=== PATIENT | female | born 1980 | race Caucasian/White ===

== ENCOUNTER 2016-06-16 13:06 | Emergency (ER) | payer MEDICAID ==
[~2016-06-16] VITALS: Ht 167.6 cm; Wt 117.4 kg
[~2016-06-16 13:06] MED LIST: IBUP-232 PO
[2016-06-16 13:13] VITALS: BP 119/88; PULSE 77; RESP 18; TEMP 98.2; O2SAT 96
[2016-06-16] MEDS ORDERED: NAPR500T PO (14:00)
[2016-06-16] MEDS ORDERED: ROBA500T PO (14:00)
--- NOTE | 2016-06-16 14:01 | PD ---
HPI Chief Complaint: Pain: Acute or Chronic Time Seen by Provider: 14:00 Travel History International Travel<30 days: No Contact w/Intl Traveler<30days: No Traveled to known affect area: No History of Present Illness HPI 35-year-old female presents to the emergency department for evaluation of left hip pain for 4 weeks. Denies any injury or trauma. States that the pain is in the left upper hip and side. States the pain is brought on by bending and moving the left hip. Specifically when she goes from a sitting to standing position she feels the pain. States that she has been taking ibuprofen with minimal improvement of symptoms. Denies any fever, chills, nausea, vomiting, diarrhea, constipation, burning with urination, urinary frequency. Denies , last menstrual period 3 weeks ago. No other complaints. PFSH Past Medical History Medical History: Denies Significant Hx Hx Anticoagulant Therapy: No Blood Disorders: No Cancer: No Cardiovascular Problems: No Chemotherapy: No Cerebrovascular Accident: No Diabetes: No Diminished Hearing: No Endocrine: No Gastrointestinal Disorders: No Genitourinary: No Immune Disorder: No Implanted Vascular Access Dvce: No Musculoskeletal: No Neurologic: No Psychiatric: No Reproductive: No Respiratory: No ?: Not LMP: 3 weeks ago : 4 Para: 3 Miscarriage: 1 Tubal Ligation: Yes Past Surgical History Abdominal Surgery: No Cardiac Surgery: No Section: Yes Ear Surgery: No Endocrine Surgery: No Eye Surgery: No Genitourinary Surgery: Yes (C/SECTION) Gynecologic Surgery: No Hysterectomy: No Neurologic Surgery: No Oral Surgery: No Thoracic Surgery: No Other Surgery: No Social History Alcohol Use: No Tobacco Use: No Substance Use: No Allergies-Medications (Allergen,Severity, Reaction): Coded Allergies: No Known Allergies (Verified , 01/01/16) Reported Meds & Prescriptions Reported Meds & Active Scripts Active Naproxen 500 Mg Tab 500 Mg PO BID 7 Days Robaxin (Methocarbamol) 500 Mg Tab 500 Mg PO TID Ibuprofen 600 Mg Tab 600 Mg PO Q8HR PRN Review of Systems Except as stated in HPI: all other systems reviewed are Neg Physical Exam Narrative GENERAL: Well-nourished and well-developed pleasant patient in no acute distress who is nontoxic appearing. SKIN: Warm and dry. HEAD: Normocephalic and atraumatic. EYES: No injection, drainage, or hyphema noted. PERRLA. EOMI. ENT: No nasal drainage noted. Oropharynx is clear. NECK: Supple and the trachea is midline. CARDIOVASCULAR: Regular rate and rhythm. RESPIRATORY: Breath sounds are equal bilaterally with no accessory muscle use, wheezing, rhonchi, or crackles. GASTROINTESTINAL: Abdomen is soft, non-tender, and nondistended. MUSCULOSKELETAL: Patient describing pain in the left hip flexor with lifting the left leg at the hip. No obvious deformities, swelling, cyanosis, or ecchymosis is present throughout the upper and lower extremities. Patient has full range of motion without any signs of neurovascular compromise. BACK: Nontender without any obvious deformities, bony point tenderness, or crepitus noted throughout the thoracic and lumbar vertebrae. NEUROLOGICAL: Awake, alert, and oriented. Normal speech and gait. Cranial nerves are grossly intact. Data Data Last Documented VS Vital Signs Date Time Temp Pulse Resp B/P Pulse Ox O2 Delivery O2 Flow Rate FiO2 06/16/16 13:13 98.2 77 18 119/88 96 MDM Medical Decision Making Medical Screen Exam Complete: Yes Emergency Medical Condition: Yes Differential Diagnosis Muscle strain versus muscle spasm versus arthritis versus other Narrative Course 35-year-old female presents to the emergency department for evaluation of left hip pain. Patient is afebrile, vital signs are stable. The patient is describing pain located in the left hip flexor only with movement of the left leg, bending and when she goes from a sitting to standing position. The description of the pain is consistent with musculoskeletal pain. We'll prescribe her Robaxin and naproxen. Discussed with the patient that should she have any worsening of symptoms she should return to the emergency department. Patient verbalizes understanding and agreement with treatment plan. Diagnosis Primary Impression: Left hip pain Referrals: Primary Care Physician Patient Instructions: General Instructions, Hip Pain (ED) Additional Instructions: Take medications as prescribed with food and a full glass of water. Do not take Robaxin with alcohol or while driving. Follow-up with your Primary Care Physician. Return to the ED for any acute worsening of symptoms. Med/Other Pt SpecificInfo: Prescription(s) given Scripts Naproxen 500 Mg [id number] Mg PO BID 7 Days Ref 0 Prov:Abdirashid Leon MD 06/16/16 Methocarbamol (Robaxin)500 Mg [id number] Mg PO TID #15 TAB Ref 0 Prov:Abdirashid Leon MD 06/16/16 Disposition: 01 DISCHARGE HOME Condition: Stable Doreen Reardon Jun 16, 2016 14:01
== END 2016-06-16 14:18 | disposition home or self-care (01) ==
LOC: PHEFT 13:06
DX: M25.552 Pain in left hip (principal)
CPT/HCPCS: 99283

== ENCOUNTER 2016-07-02 21:49 | Emergency (ER) | payer MEDICAID, OTHER ==
[~2016-07-02 21:49] MED LIST changes: +NAPR500T PO; +ROBA500T PO
[2016-07-02 21:53] VITALS: BP 131/86; PULSE 73; RESP 18; TEMP 98.9; O2SAT 100
[2016-07-02 22:08] LABS: BLOOD, URINE NEG (NEG); GLUCOSE,URINE NEG (NEG); KETONE, URINE NEG (NEG); NITRITE,URINE NEG (NEG)
[2016-07-02 22:10] LABS: URINE COLOR YELLOW (YELLW/STRAW)
[2016-07-02 22:13] LABS: RBC, URINE 0-2 /hpf (0-3); WBC, URINE 0-2 /hpf (0-5)
[2016-07-02 22:14] LABS: BACTERIA, URINE OCC /hpf; COMMENT (UR) CULT NOT INDICATED; CULTURE IF INDICATED CULT NOT INDICATED; SQUAMOUS EPITHELIAL CELL URINE > 8 /hpf (0-5)
[2016-07-02] MEDS ORDERED: SODIUM CHLORIDE 0.9% FLUSH 10 ML FLUSH IV FLUSH PRN (22:30)
[2016-07-02] MEDS ORDERED: ACETAMINOPHEN/HYDROcodone 325 MG/5 MG TAB PO ONE (22:30)
--- NOTE | 2016-07-02 22:33 | PD ---
HPI Chief Complaint: Abdominal Pain Time Seen by Provider: 21:58 Travel History International Travel<30 days: No Contact w/Intl Traveler<30days: No Traveled to known affect area: No History of Present Illness HPI 35 yo LMP 2 weeks prior 2 days suprapubic and L abd pain, crampy/burning, which she states is severe. onset gradual. no gu complaint. no fever. no n/v/d. no similar prior pain. no back pain. pain is worse with deep palpation. PFSH Past Medical History Hx Anticoagulant Therapy: No Blood Disorders: No Cancer: No Cardiovascular Problems: No Chemotherapy: No Cerebrovascular Accident: No Diabetes: No Diminished Hearing: No Endocrine: No Gastrointestinal Disorders: No Genitourinary: No Immune Disorder: No Implanted Vascular Access Dvce: No Musculoskeletal: No Neurologic: No Psychiatric: No Reproductive: No Respiratory: No ?: Unknown LMP: END OF MAY : 4 Para: 3 Miscarriage: 1 Tubal Ligation: Yes Past Surgical History Abdominal Surgery: No Cardiac Surgery: No Section: Yes Ear Surgery: No Endocrine Surgery: No Eye Surgery: No Genitourinary Surgery: Yes (C/SECTION) Gynecologic Surgery: No Hysterectomy: No Neurologic Surgery: No Oral Surgery: No Thoracic Surgery: No Other Surgery: No Social History Alcohol Use: No Tobacco Use: No Substance Use: No Allergies-Medications (Allergen,Severity, Reaction): Coded Allergies: No Known Allergies (Verified , 01/01/16) Reported Meds & Prescriptions Reported Meds & Active Scripts Active Naproxen 500 Mg Tab 500 Mg PO BID 7 Days Robaxin (Methocarbamol) 500 Mg Tab 500 Mg PO TID Ibuprofen 600 Mg Tab 600 Mg PO Q8HR PRN Review of Systems Except as stated in HPI: all other systems reviewed are Neg Physical Exam Narrative GENERAL: 35 yo F, WNWD, NAD SKIN: Warm and dry. HEAD: Atraumatic. Normocephalic. EYES: Pupils equal and round. No scleral icterus. No injection or drainage. ENT: No nasal bleeding or discharge. Mucous membranes pink and moist. NECK: Trachea midline. No JVD. CARDIOVASCULAR: Regular rate and rhythm. RESPIRATORY: No accessory muscle use. Clear to auscultation. Breath sounds equal bilaterally. GASTROINTESTINAL: Soft. TTP L abdomen. No rebound/guarding. MUSCULOSKELETAL: Extremities without clubbing, cyanosis, or edema. No obvious deformities. NEUROLOGICAL: Awake and alert. No obvious cranial nerve deficits. Motor grossly within normal limits. Five out of 5 muscle strength in the arms and legs. Normal speech. PSYCHIATRIC: Appropriate mood and affect; insight and judgment normal. Data Data Last Documented VS Vital Signs Date Time Temp Pulse Resp B/P Pulse Ox O2 Delivery O2 Flow Rate FiO2 07/02/16 22:24 20 07/02/16 21:53 98.9 73 131/86 100 VS reviewed Orders Urinalysis - C+S If Indicated (07/02/16 21:58) Ed Urine Pregnancytest Poc (07/02/16 21:58) Complete Blood Count With Diff (07/02/16 22:25) Comprehensive Metabolic Panel (07/02/16 22:25) Lipase (07/02/16 22:25) Lactic Acid (07/02/16 22:25) Iv Access Insert/Monitor (07/02/16 22:25) Ecg Monitoring (07/02/16 22:25) Oximetry (07/02/16 22:25) Sodium Chloride 0.9% Flush (Ns Flush) (07/02/16 22:30) Acetamin-Hydrocod 325-5 Mg ([place] 5-325 (07/02/16 22:30) Labs Laboratory Tests Test 07/02/16 07/02/16 22:00 22:45 Urine Color YELLOW Urine Turbidity CLEAR Urine pH 6.0 Urine Specific [place] 1.016 Urine Protein TRACE mg/dL Urine Glucose (UA) NEG mg/dL Urine Ketones NEG mg/dL Urine Occult Blood NEG Urine Nitrite NEG Urine Bilirubin NEG Urine Leukocyte Esterase NEG Urine RBC 0-2 /hpf Urine WBC 0-2 /hpf Urine Squamous Epithelial > 8 /hpf Cells Urine Bacteria OCC /hpf Microscopic Urinalysis Comment CULT NOT INDICATED White Blood Count 8.7 TH/MM3 Red Blood Count 4.44 MIL/MM3 Hemoglobin 11.9 GM/DL Hematocrit 36.0 % Mean Corpuscular Volume 81.2 FL Mean Corpuscular Hemoglobin 26.9 PG Mean Corpuscular Hemoglobin 33.1 % Concent Red Cell Distribution Width 14.1 % Platelet Count 327 TH/MM3 Mean Platelet Volume 8.5 FL Neutrophils (%) (Auto) 58.5 % Lymphocytes (%) (Auto) 33.3 % Monocytes (%) (Auto) 5.5 % Eosinophils (%) (Auto) 1.7 % Basophils (%) (Auto) 1.0 % Neutrophils # (Auto) 5.1 TH/MM3 Lymphocytes # (Auto) 2.9 TH/MM3 Monocytes # (Auto) 0.5 TH/MM3 Eosinophils # (Auto) 0.1 TH/MM3 Basophils # (Auto) 0.1 TH/MM3 CBC Comment DIFF FINAL Differential Comment Sodium Level 142 MEQ/L Potassium Level 3.8 MEQ/L Chloride Level 106 MEQ/L Carbon Dioxide Level 28.4 MEQ/L Anion Gap 8 MEQ/L Blood Urea Nitrogen 8 MG/DL Creatinine 0.67 MG/DL Estimat Glomerular Filtration 100 ML/MIN Rate Random Glucose 98 MG/DL Lactic Acid Level 1.2 mmol/L Calcium Level 8.8 MG/DL Total Bilirubin 0.3 MG/DL Aspartate Amino Transf 16 U/L (AST/SGOT) Alanine Aminotransferase 25 U/L (ALT/SGPT) Alkaline Phosphatase 52 U/L Total Protein 7.2 GM/DL Albumin 3.3 GM/DL Lipase 217 U/L MDM Medical Decision Making Medical Screen Exam Complete: Yes Emergency Medical Condition: Yes Medical Record Reviewed: Yes Differential Diagnosis IUP, UTI, ectopic , ov torsion, appendicitis, TOA, cervicitis, BV, Trichomoniasis, ov cyst, hernia, mittelschmerz, pain from menstruation Narrative Course CBC & BMP Diagram 07/02/16 22:45 LFTs normal Lipase normal Lactic acid normal The patient is resting comfortably and feels better, is alert and in no distress. The patients results and examination findings were discussed. The repeat examination is unremarkable and benign. The history, exam, diagnostic testing, and current condition do not suggest any significant pathology to warrant further testing, continued ED treatment, admission, or surgical evaluation at this point. The vital signs have been stable. The patient does not have uncontrollable pain, intractable vomiting, or other significant symptoms. The patient's condition is stable and appropriate for discharge. The patient will pursue further outpatient evaluation with a primary care physician or other designated or consulting physician as indicated in the discharge instructions. The patient expressed understanding and was agreeable with this plan. Diagnosis Primary Impression: Pain in the abdomen Qualified Code: R10.9 - Abdominal pain, unspecified location Referrals: Primary Care Physician 2 days Additional Instructions: You have a choice when it comes to health care, and we are glad that you chose [facility]. Hopefully, we have met your expectations on today's visit. You are welcome to return to [facility] at any time, as we are committed to meeting the health care needs of our community. Med/Other Pt SpecificInfo: Prescription(s) given Scripts Dicyclomine (Bentyl)10 Mg Cap10 Mg PO TID PRN (Bowel Management) #20 CAP Ref 0 Prov:Kade Pace MD 07/02/16 Ibuprofen 600 Mg [id number] Mg PO Q8HR PRN (PAIN) #30 TAB Ref 0 Prov:Kade Pace MD 07/02/16 Disposition: 01 DISCHARGE HOME Condition: Stable Kade Pace MD July 02, 2016 22:33
[2016-07-02 22:56] LABS: AUTOMATED NEUTROPHIL # 5.1 TH/MM3 (1.8-7.7); BASOPHIL # 0.1 TH/MM3 (0-0.2); EOSINOPHIL # 0.1 TH/MM3 (0-0.4); EOSINOPHIL % 1.7 % (0.0-4.0); HEMO FLAGS DIFF FINAL; LYMPH % 33.3 % (9.0-44.0); LYMPHOCYTE # 2.9 TH/MM3 (1.0-4.8); MEAN CELL VOLUME 81.2 FL (80.0-100.0); MEAN CORPUSCULAR HEMOGLOBIN 26.9 PG (27.0-34.0); MEAN CORPUSCULAR HGB CONC 33.1 % (32.0-36.0); MONO % 5.5 % (0.0-8.0); NEUT % 58.5 % (16.0-70.0); PLATELET COUNT 327 TH/MM3 (150-450); RED BLOOD COUNT 4.44 MIL/MM3 (4.00-5.30); RED CELL DISTRIBUTION WIDTH 14.1 % (11.6-17.2); WHITE BLOOD COUNT 8.7 TH/MM3 (4.0-11.0)
[2016-07-02 23:02] LABS: CHLORIDE 106 MEQ/L (98-107); POTASSIUM 3.8 MEQ/L (3.5-5.1); SODIUM (NA) 142 MEQ/L (136-145)
[2016-07-02 23:06] LABS: ANION GAP 8 MEQ/L (5-15); BICARBONATE 28.4 MEQ/L (21.0-32.0); BLOOD UREA NITROGEN 8 MG/DL (7-18)
[2016-07-02 23:09] LABS: ALT (GPT) 25 U/L (10-53); AST (GOT) 16 U/L (15-37); GLOMERULAR FILTRATION RATE 100 ML/MIN (>89)
[2016-07-02 23:10] LABS: TOTAL BILIRUBIN ADULT 0.3 MG/DL (0.2-1.0)
[2016-07-02 23:12] LABS: ALKALINE PHOSPHATASE 52 U/L (45-117)
[2016-07-02] MEDS ORDERED: IBUP-232 PO (23:19)
[2016-07-02] MEDS ORDERED: DICY10 PO (23:19)
[2016-07-02 23:26] VITALS: BP 144/82; PULSE 65; PULSE 66; RESP 20; O2SAT 97; O2SAT 98
[2016-07-03 00:30] VITALS: BP 136/74
== END 2016-07-03 00:35 | disposition home or self-care (01) ==
LOC: PHED 21:49
DX: R10.9 Unspecified abdominal pain (principal)
CPT/HCPCS: 80053; 81001; 83605; 83690; 84703; 85025; 99284

== ENCOUNTER 2016-08-28 22:34 | Emergency (ER) | payer MEDICAID ==
[~2016-08-28] VITALS: Ht 160 cm; Wt 114.0 kg
[~2016-08-28 22:34] MED LIST changes: +DICY10 PO
[2016-08-28 22:40] VITALS: BP 125/87; PULSE 74; RESP 18; TEMP 98.2; O2SAT 98
[2016-08-29 00:15] LABS: BLOOD, URINE NEG (NEG); GLUCOSE,URINE NEG (NEG); KETONE, URINE NEG (NEG); NITRITE,URINE NEG (NEG)
[2016-08-29 00:24] LABS: MUCUS URINE FEW /lpf (OCC); URINE COLOR YELLOW (YELLW/STRAW)
[2016-08-29 00:25] LABS: BACTERIA, URINE OCC /hpf; COMMENT (UR) CULT NOT INDICATED; CULTURE IF INDICATED CULT NOT INDICATED; WBC, URINE 0-2 /hpf (0-5)
--- NOTE | 2016-08-29 01:14 | PD ---
HPI Chief Complaint: Sas Programmer Analyst Problem/Complaint Time Seen by Provider: 01:11 Travel History International Travel<30 days: No Contact w/Intl Traveler<30days: No Traveled to known affect area: No History of Present Illness HPI 35-year-old female presents to the emergency department by private transportation for complaint of one day of lower pelvic pain. Patient denies fever chills nausea vomiting dysuria frequency urgency hematuria or flank pain. Patient's had no vaginal discharge or vaginal bleeding. Last visit. Was to 3 weeks ago. Patient is 3 para 3 AB 0. Patient denies previous similar menstrual type or midcycle pain. Patient denies any injury. Patient states at 11 AM symptoms began she took 800 mg of ibuprofen at 1 PM without any significant improvement is taking no further medication. Patient rates pain 10 over 10 in intensity. Patient is unable to identify exacerbating or alleviating factors. Patient is sexually active. Patient is status post tubal ligation. PFSH Past Medical History Narrative Medical Tubal ligation ; alcohol use: Nursing notes reviewed Hx Anticoagulant Therapy: No Blood Disorders: No Cancer: No Cardiovascular Problems: No Chemotherapy: No Cerebrovascular Accident: No Diabetes: No Diminished Hearing: No Endocrine: No Gastrointestinal Disorders: No Genitourinary: No Immune Disorder: No Implanted Vascular Access Dvce: No Musculoskeletal: No Neurologic: No Psychiatric: No Reproductive: No Respiratory: No ?: Unknown LMP: 2 weeks ago : 4 Para: 3 Miscarriage: 1 Tubal Ligation: Yes Past Surgical History Abdominal Surgery: No Cardiac Surgery: No Section: Yes Ear Surgery: No Endocrine Surgery: No Eye Surgery: No Genitourinary Surgery: Yes (C/SECTION) Gynecologic Surgery: No Hysterectomy: No Neurologic Surgery: No Oral Surgery: No Thoracic Surgery: No Other Surgery: No Social History Alcohol Use: Yes (SOCIAL) Tobacco Use: No Substance Use: No Allergies-Medications (Allergen,Severity, Reaction): Coded Allergies: No Known Allergies (Verified , 01/01/16) Reported Meds & Prescriptions Reported Meds & Active Scripts Active Ibuprofen 600 Mg Tab 600 Mg PO Q8HR PRN Review of Systems Except as stated in HPI: all other systems reviewed are Neg Physical Exam Narrative GENERAL: Well-developed well-nourished female in acute distress no respiratory distress SKIN: Warm and dry. HEAD: Normocephalic. EYES: No scleral icterus. No injection or drainage. NECK: Supple, trachea midline. No JVD or lymphadenopathy. CARDIOVASCULAR: Regular rate and rhythm without murmurs, gallops, or rubs. RESPIRATORY: Breath sounds equal bilaterally. No accessory muscle use. GASTROINTESTINAL: Abdomen soft, non-tender, nondistended. Pelvic exam: MUSCULOSKELETAL: No cyanosis, or edema. BACK: Nontender without obvious deformity. No CVA tenderness. Data Data Last Documented VS Vital Signs Date Time Temp Pulse Resp B/P Pulse Ox O2 Delivery O2 Flow Rate FiO2 08/28/16 22:40 98.2 74 18 125/87 98 Orders Urinalysis - C+S If Indicated (08/29/16 00:03) Ed Urine Pregnancytest Poc (08/29/16 01:11) Gc And Chlamydia Pcr (08/29/16 01:47) Wet Prep Profile (08/29/16 01:47) Ct Abd/Pel W/O Iv Contrast (08/29/16 ) Ketorolac Inj (Toradol Inj) (08/29/16 02:00) Labs Laboratory Tests Test 08/29/16 08/29/16 00:06 01:50 Urine Color YELLOW Urine Turbidity SLIGHT Urine pH 6.0 Urine Specific [place] 1.025 Urine Protein NEG mg/dL Urine Glucose (UA) NEG mg/dL Urine Ketones NEG mg/dL Urine Occult Blood NEG Urine Nitrite NEG Urine Bilirubin NEG Urine Leukocyte Esterase NEG Urine WBC 0-2 /hpf Urine Squamous Epithelial 6-8 /hpf Cells Urine Bacteria OCC /hpf Urine Mucus FEW /lpf Microscopic Urinalysis Comment CULT NOT INDICATED Clue Cells (Wet Prep) NONE SEEN Vaginal Trichomonas (Wet Prep) NONE SEEN Vaginal Yeast (Wet Prep) NONE SEEN MDM Medical Decision Making Medical Screen Exam Complete: Yes Emergency Medical Condition: Yes Medical Record Reviewed: Yes Differential Diagnosis Pelvic pain, UTI, , mittelschmerz, ovarian cyst, also to consider ovarian torsion Narrative Course 35 old female in no apparent distress or discomfort with normal tenderness to direct palpation to the lower abdomen without guarding or rebound with normal range triage vital signs; normal urinalysis; [id number] hCG Labs are found to be in normal range however in view of sudden onset of symptoms and flank discomfort and pelvic discomfort we'll proceed with CT abdomen and pelvis to evaluate for renal colic CT is resulted and found to be normal no evidence for hydroureter or hydronephrosis or nephrolithiasis otherwise normal in no acute inflammatory findings Is 3:35 AM and patient is clinically improved and stable for outpatient management. 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
[2016-08-29] MEDS ORDERED: KETOROLAC TROMETHAMINE 60 MG/2 ML (IM) VIAL IM ONE (02:00)
--- NOTE | 2016-08-29 03:13 | RADRPT ---
EXAM DATE/TIME: 08/29/2016 02:46 [facility] COMPARISON: CT ABDOMEN & PELVIS W/O CONTRAST, November 11, 2015, 1:24. INDICATIONS : Evaluate for renal stone. Pelvic pain. Cramping. ORAL CONTRAST: No oral contrast ingested. RADIATION DOSE: 21.08 CTDIvol (mGy) MEDICAL HISTORY : None SURGICAL HISTORY : Tubal ligation. section. ENCOUNTER: Initial ACUITY: 1 day PAIN SCALE: 5/10 LOCATION: Bilateral pelvis TECHNIQUE: Volumetric scanning of the abdomen and pelvis was performed. Using automated exposure control and ad justment of the mA and/or kV according to patient size, radiation dose was kept as low as reasonably achievable to obtain optimal diagnostic quality images. DICOM format image data is available electro nically for review and comparison. FINDINGS: LOWER LUNGS: The visualized lower lungs are clear. LIVER: Homogeneous density without lesion. There is no dilation of the biliary tree. No calcified gallston es. SPLEEN: Normal size without lesion. PANCREAS: Within normal limits. KIDNEYS: Normal in size and shape. There is no mass, stone, or hydronephrosis. ADRENAL GLANDS: Within normal limits. VASCULAR: There is no aortic aneurysm. BOWEL/MESENTERY: The stomach, small bowel, and colon demonstrate no acute abnormality. There is no free intraperitone al air or fluid. ABDOMINAL WALL: Within normal limits. RETROPERITONEUM: There is no lymphadenopathy. BLADDER: No wall thickening or mass. REPRODUCTIVE: Within normal limits. INGUINAL: There is no lymphadenopathy or hernia. MUSCULOSKELETAL: Within normal limits for patient age. CONCLUSION: 1. No renal calculi or hydronephrosis. 2. No acute inflammatory process. Stan Kramer MD on August 29, 2016 at 3:09 Board Certified Radiologist. This report was verified electronically.
[2016-08-29 03:50] VITALS: BP 147/78
[2016-08-29 06:09] LABS: CHLAMYDIA PCR NOT DETECTED (NOT DETECT); NEISSERIA PCR NOT DETECTED (NOT DETECT)
== END 2016-08-29 03:52 | disposition home or self-care (01) ==
LOC: PHED 22:34
DX: R10.2 Pelvic and perineal pain (principal); N94.0 Mittelschmerz
CPT/HCPCS: 74176; 81001; 84703; 87210; 87491; 87591; 96372; 99285; J1885

== ENCOUNTER 2016-09-10 22:18 | Emergency (ER) | payer MEDICAID ==
[~2016-09-10 22:18] MED LIST changes: -DICY10 PO; -NAPR500T PO; -ROBA500T PO
[2016-09-10 22:21] VITALS: BP 126/86; PULSE 94; RESP 20; TEMP 98.5; O2SAT 99
[2016-09-10] MEDS ORDERED: OSEL75 PO (23:12)
--- NOTE | 2016-09-10 23:12 | PD ---
HPI Chief Complaint: Cold / Flu Symptoms Time Seen by Provider: 22:56 Travel History International Travel<30 days: No Contact w/Intl Traveler<30days: No Traveled to known affect area: No History of Present Illness HPI This is a 36-year-old female who presents to the emergency department with body aches, sore throat and fevers and chills that started at 5 PM. Her symptoms have been constant, moderate severity associated with some abdominal discomfort and loose stools. Her son was sick with similar symptoms and was diagnosed over the weekend with influenza B. She is otherwise healthy and doesn't smoke. PFSH Past Medical History Hx Anticoagulant Therapy: No Blood Disorders: No Cancer: No Cardiovascular Problems: No Chemotherapy: No Cerebrovascular Accident: No Diabetes: No Diminished Hearing: No Endocrine: No Gastrointestinal Disorders: No Genitourinary: No Immune Disorder: No Implanted Vascular Access Dvce: No Musculoskeletal: No Neurologic: No Psychiatric: No Reproductive: No Respiratory: No LMP: END July : 4 Para: 3 Miscarriage: 1 Tubal Ligation: Yes Past Surgical History Abdominal Surgery: No Cardiac Surgery: No Section: Yes Ear Surgery: No Endocrine Surgery: No Eye Surgery: No Genitourinary Surgery: Yes (C/SECTION) Gynecologic Surgery: No Hysterectomy: No Neurologic Surgery: No Oral Surgery: No Thoracic Surgery: No Other Surgery: No Social History Alcohol Use: Yes (SOCIAL) Tobacco Use: No Substance Use: No Allergies-Medications (Allergen,Severity, Reaction): Coded Allergies: No Known Allergies (Verified , 01/01/16) Reported Meds & Prescriptions Reported Meds & Active Scripts Active Ibuprofen 600 Mg Tab 600 Mg PO Q8HR PRN Review of Systems Except as stated in HPI: all other systems reviewed are Neg Physical Exam Narrative GENERAL:Well appearing, no acute distress SKIN: Focused skin assessment warm and dry. HEAD: Atraumatic. Normocephalic. EYES: Pupils equal and round. No injection or drainage. ENT: Rhinorrhea present. Moist mucous membranes. Mild posterior pharyngeal erythema with no exudates. NECK: Trachea midline. CARDIOVASCULAR: Regular rate and rhythm. No murmur appreciated. RESPIRATORY: Clear to auscultation. Breath sounds equal bilaterally. GASTROINTESTINAL: Abdomen soft, non-tender, nondistended. MUSCULOSKELETAL: No obvious deformities. NEUROLOGICAL: Awake and alert. No obvious cranial nerve deficits. Moving all extremities. PSYCHIATRIC: Appropriate mood and affect; insight and judgment normal. Data Data Last Documented VS Vital Signs Date Time Temp Pulse Resp B/P Pulse Ox O2 Delivery O2 Flow Rate FiO2 09/10/16 22:21 98.5 94 20 126/86 99 MDM Medical Decision Making Medical Screen Exam Complete: Yes Emergency Medical Condition: Yes Interpretation(s) Afebrile, mild tachycardia, normotensive Differential Diagnosis Viral syndrome, influenza, sepsis Narrative Course This is a 36-year-old female who presents to the emergency department with myalgias, fevers and chills. Her son was sick with influenza B and I suspect this is the same. Given she is presenting so early in her illness I think it's reasonable to do a trial of Tamiflu. Patient was also advised to increase her fluid intake and to use anti-inflammatories for symptom control. She is nontoxic appearing and can be discharged home. Diagnosis Primary Impression: Influenza Patient Instructions: General Instructions Additional Instructions: If you develop severe chest pain, shortness of breath, sweating, lightheadedness , dizziness or difficulty breathing return to the emergency department immediately. Followup with your primary care physician in 2-3 days if your symptoms are not resolved. Med/Other Pt SpecificInfo: Prescription(s) given Scripts Oseltamivir (Tamiflu)75 Mg Cap75 Mg PO BID 5 Days Ref 0 Prov:Maria Elena Ferris MD 09/10/16 Disposition: 01 DISCHARGE HOME Condition: Stable Maria Elena Ferris MD Sep 10, 2016 23:12
[2016-09-10] MEDS ORDERED: OSELTAMIVIR PHOSPHATE 75 MG CAP PO ONE (23:30)
== END 2016-09-10 23:34 | disposition home or self-care (01) ==
LOC: PHED 22:18
DX: J10.1 Influenza due to other identified influenza virus with other respiratory manifestations (principal)
CPT/HCPCS: 99283

== ENCOUNTER 2016-12-05 21:36 | Emergency (ER) | payer MEDICAID, OTHER ==
[~2016-12-05] VITALS: Ht 167.6 cm; Wt 114.4 kg
[~2016-12-05 21:36] MED LIST changes: +OSEL75 PO
[2016-12-05 21:39] VITALS: BP 135/100; PULSE 10; PULSE 70; RESP 16; TEMP 97.2; O2SAT 100
[2016-12-05 22:00] LABS: BLOOD, URINE LARGE (NEG); GLUCOSE,URINE NEG (NEG); KETONE, URINE NEG (NEG); NITRITE,URINE NEG (NEG); PH, URINE 6.5 (5.0-8.5)
[2016-12-05 22:09] LABS: URINE COLOR RED (YELLW/STRAW)
[2016-12-05 22:10] LABS: COMMENT (UR) CULTURE INDICATED; CULTURE IF INDICATED CULTURE INDICATED; RBC, URINE INNUM /hpf (0-3); SQUAMOUS EPITHELIAL CELL URINE 0-5 /hpf (0-5)
[2016-12-05 22:43] VITALS: BP 117/74; PULSE 70; RESP 16; TEMP 97.2; O2SAT 100
[2016-12-05] MEDS ORDERED: BACT800T5 PO (22:52)
--- NOTE | 2016-12-05 22:52 | PD ---
HPI Chief Complaint: Back/ Neck Pain or Injury Time Seen by Provider: 22:16 Travel History International Travel<30 days: No Contact w/Intl Traveler<30days: No History of Present Illness HPI 36 yo F c/o low back pain since this morning. no injury/trauma/excessive use. no vb/vd. no dysuria/polyuria. no fever/chills. pain is constant. motrin conferred minimal benefit. LMP started today. no abn vd. no numbness/tingling underwear distribution. no fecal/urinary incontinence. PFSH Past Medical History Hx Anticoagulant Therapy: No Blood Disorders: No Cancer: No Cardiovascular Problems: No Chemotherapy: No Cerebrovascular Accident: No Diabetes: No Diminished Hearing: No Endocrine: No Gastrointestinal Disorders: No Genitourinary: No Immune Disorder: No Implanted Vascular Access Dvce: No Musculoskeletal: No Neurologic: No Psychiatric: No Reproductive: No Respiratory: No : 4 Para: 3 Miscarriage: 1 Tubal Ligation: Yes (X1) Past Surgical History Abdominal Surgery: No Cardiac Surgery: No Section: Yes (X1) Ear Surgery: No Endocrine Surgery: No Eye Surgery: No Genitourinary Surgery: Yes (C/SECTION) Gynecologic Surgery: No Hysterectomy: No Neurologic Surgery: No Oral Surgery: No Thoracic Surgery: No Other Surgery: No Social History Alcohol Use: Yes (SOCIAL) Tobacco Use: No Substance Use: No Allergies-Medications (Allergen,Severity, Reaction): Coded Allergies: No Known Allergies (Verified , 01/01/16) Reported Meds & Prescriptions Reported Meds & Active Scripts Active Bactrim DS (Sulfamethoxazole-Trimethoprim) 800-160 Mg Tab 1 Tab PO BID Tamiflu (Oseltamivir Phosphate) 75 Mg Cap 75 Mg PO BID 5 Days Ibuprofen 600 Mg Tab 600 Mg PO Q8HR PRN Review of Systems Except as stated in HPI: all other systems reviewed are Neg General / Constitutional: No: Fever Physical Exam Narrative GENERAL: 36 yo F, WNWD, NAD SKIN: Warm and dry. HEAD: Atraumatic. Normocephalic. EYES: Pupils equal and round. No scleral icterus. No injection or drainage. ENT: No nasal bleeding or discharge. Mucous membranes pink and moist. NECK: Trachea midline. No JVD. CARDIOVASCULAR: Regular rate and rhythm. RESPIRATORY: No accessory muscle use. Clear to auscultation. Breath sounds equal bilaterally. GASTROINTESTINAL: Minimal flank TTP bilaterally. Abdomen soft. No focus of tenderness. MUSCULOSKELETAL: Extremities without clubbing, cyanosis, or edema. No obvious deformities. NEUROLOGICAL: Awake and alert. No obvious cranial nerve deficits. Motor grossly within normal limits. Five out of 5 muscle strength in the arms and legs. Normal speech. PSYCHIATRIC: Appropriate mood and affect; insight and judgment normal. Data Data Last Documented VS Vital Signs Date Time Temp Pulse Resp B/P (MAP) Pulse Ox O2 Delivery O2 Flow Rate FiO2 12/05/16 22:43 97.2 70 16 117/74 (88) 100 VS reviewed Orders Orders Urinalysis - C+S If Indicated (12/05/16 21:38) Ed Urine Pregnancytest Poc (12/05/16 21:38) Urine Culture (12/05/16 21:50) Sulfamet-Trimeth Ds 800-160 Mg (Bactrim (12/05/16 23:00) Acetamin-Hydrocod 325-5 Mg ([place] 5-325 (12/05/16 23:00) Labs Laboratory Tests Test 12/05/16 21:50 Urine Color RED Urine Turbidity CLOUDY Urine pH 6.5 Urine Specific [place] 1.029 Urine Protein 100 mg/dL Urine Glucose (UA) NEG mg/dL Urine Ketones NEG mg/dL Urine Occult Blood LARGE Urine Nitrite NEG Urine Bilirubin NEG Urine Leukocyte Esterase TRACE Urine RBC INNUM /hpf Urine WBC 9-14 /hpf Urine Squamous Epithelial Cells 0-5 /hpf Microscopic Urinalysis Comment CULTURE INDICATED MDM Medical Decision Making Medical Screen Exam Complete: Yes Emergency Medical Condition: Yes Medical Record Reviewed: Yes Differential Diagnosis UTI, pyelonephritis, renal stone, menstruation Narrative Course UA: hematuria with wbc and luekocyte esterase Bactrim script pain control Diagnosis Primary Impression: UTI (urinary tract infection) Qualified Codes: N30.01 - Acute cystitis with hematuria Additional Impression: Low back pain Qualified Codes: M54.5 - Low back pain Referrals: Primary Care Physician 2 days Additional Instructions: You have a choice when it comes to health care, and we are glad that you chose [facility]. Hopefully, we have met your expectations on today's visit. You are welcome to return to [facility] at any time, as we are committed to meeting the health care needs of our community. Med/Other Pt SpecificInfo: Prescription(s) given Scripts Sulfamethoxazole-Trimethoprim (Bactrim DS) 800-160 Mg Tab 1 TAB PO BID for Infection, #6 TAB 0 Refills Prov: Kade Pace MD 12/05/16 Disposition: 01 DISCHARGE HOME Condition: Stable Kade Pace MD Dec 05, 2016 22:52
[2016-12-05] MEDS ORDERED: SULFAMETHOXAZOLE-TRIMETHOPRIM DS 800-160 MG TAB PO ONE (23:00)
[2016-12-05] MEDS ORDERED: ACETAMINOPHEN/HYDROcodone 325 MG/5 MG TAB PO ONE (23:00)
[2016-12-05 23:36] VITALS: BP 120/74; TEMP 98.4
[2016-12-05 23:38] VITALS: RESP 14
== END 2016-12-05 23:39 | disposition home or self-care (01) ==
LOC: PHED 21:36
DX: N30.01 Acute cystitis with hematuria (principal); M54.5 Low back pain
CPT/HCPCS: 81001; 84703; 87086; 99283

== ENCOUNTER 2016-12-29 07:07 | Emergency (ER) | payer OTHER ==
[~2016-12-29] VITALS: Ht 167.6 cm; Wt 110.0 kg
[~2016-12-29 07:07] MED LIST changes: +BACT800T5 PO
[2016-12-29 07:12] VITALS: BP 130/77; PULSE 73; RESP 14; TEMP 98.4; O2SAT 100
[2016-12-29] MEDS ORDERED: SODIUM CHLOR 0.9% 1000 ML INJ 1,000 ML IV ONE (07:34)
[2016-12-29] MEDS ORDERED: PROCHLORPERAZINE INJ 10 MG/2 ML VIAL IVP ONE (07:45)
[2016-12-29] MEDS ORDERED: KETOROLAC TROMETHAMINE 30 MG/ML (IVP) VIAL IVP ONE (07:45)
[2016-12-29] MEDS ORDERED: SODIUM CHLORIDE 0.9% FLUSH 10 ML FLUSH IVF PRN (07:45)
[2016-12-29] MEDS ORDERED: diphenhydrAMINE HCL 50 MG/ML VIAL IVP ONE (07:45)
--- NOTE | 2016-12-29 07:45 | PD ---
HPI . Headache 2 days Chief Complaint: Headache Time Seen by Provider: 07:23 Travel History International Travel<30 days: No Contact w/Intl Traveler<30days: No Traveled to known affect area: No History of Present Illness HPI 36-year-old female patient presents to emergency department for evaluation of headache that she's had for 2 days now. The headache is in the occipital portion of the head that wraps around from ear to ear and is throbbing and constant in nature. Patient states she has tried ibuprofen at home but with no relief. Patient denies any traumas, falls or head injuries. Patient states she had migraines when she was and is not sure if she is at this time. Patient states there are no alleviating factors. Patient denies any fevers, chills, cough, shortness breath, chest pain, nausea, vomiting, diarrhea, blurred vision or lightheadedness. PFSH Past Medical History Hx Anticoagulant Therapy: No Blood Disorders: No Cancer: No Cardiovascular Problems: No Chemotherapy: No Cerebrovascular Accident: No Diabetes: No Diminished Hearing: No Endocrine: No Gastrointestinal Disorders: No Genitourinary: No Immune Disorder: No Implanted Vascular Access Dvce: No Musculoskeletal: No Neurologic: No Psychiatric: No Reproductive: No Respiratory: No ?: Not LMP: 11/27/16 : 4 Para: 3 Miscarriage: 0 : 0 Ectopic : Yes (2007) Tubal Ligation: Yes (X1) Past Surgical History Abdominal Surgery: No Cardiac Surgery: No Section: Yes (2008) Ear Surgery: No Endocrine Surgery: No Eye Surgery: No Genitourinary Surgery: Yes (C/SECTION) Gynecologic Surgery: Yes (C SECTION) Hysterectomy: No Neurologic Surgery: No Oral Surgery: No Thoracic Surgery: No Other Surgery: No Social History Alcohol Use: No Tobacco Use: No Substance Use: No Allergies-Medications (Allergen,Severity, Reaction): Coded Allergies: No Known Allergies (Verified Adverse Reaction, Unknown, 12/29/16) Reported Meds & Prescriptions Reported Meds & Active Scripts Active No Active Prescriptions or Reported Medications Review of Systems Except as stated in HPI: all other systems reviewed are Neg Physical Exam Narrative GENERAL: Well-nourished, well-developed 36-year-old female patient in no acute distress. She is resting comfortably on the bed and smiling and joking. Nontoxic appearing. SKIN: Focused skin assessment warm/dry. HEAD: Normocephalic. Atraumatic. NEUROLOGICAL: Awake and alert. Cranial nerves II through XII intact. Motor and sensory grossly within normal limits. Five out of 5 muscle strength in all muscle groups. Normal speech. EYES: PERRLA demonstrated bilaterally. No scleral icterus. No injection or drainage. ENT: Mucosa pink and moist. No erythema or exudates. No uvular edema. No uvular , palatal, or tonsillar deviation. Airway patent. Nasal turbinates appear normal without nasal blood, purulent drainage or septal hematoma. NECK: Supple, trachea midline. No JVD or lymphadenopathy. CARDIOVASCULAR: Regular rate and rhythm without murmurs, gallops, or rubs. RESPIRATORY: Breath sounds equal bilaterally. No accessory muscle use. GASTROINTESTINAL: Abdomen soft, non-tender, nondistended. MUSCULOSKELETAL: No cyanosis, or edema. BACK: Nontender without obvious deformity. No CVA tenderness. Data Data Last Documented VS Vital Signs Date Time Temp Pulse Resp B/P (MAP) Pulse Ox O2 Delivery O2 Flow Rate FiO2 12/29/16 07:12 98.4 73 14 130/77 (94) 100 Orders Orders Iv Access Insert/Monitor (12/29/16 07:34) Sodium Chloride 0.9% Flush (Ns Flush) (12/29/16 07:45) Ketorolac Inj (Toradol Inj) (12/29/16 07:45) Prochlorperazine Inj (Compazine Inj) (12/29/16 07:45) Diphenhydramine Inj (Benadryl Inj) (12/29/16 07:45) Sodium Chlor 0.9% 1000 Ml Inj (Ns 1000 M (12/29/16 07:34) MDM Medical Decision Making Medical Screen Exam Complete: Yes Emergency Medical Condition: Yes Differential Diagnosis Differential diagnosis includes but not limited to migraine, cluster headache, tension headache, sinusitis, viral syndrome Narrative Course 36-year-old female presents to the emergency department for evaluation of a headache that she's had for 2 days that is throbbing and constant in nature that wraps around the occipital portion of the head from ear to ear. Patient denies any traumas, head injuries or falls. Patient denies any fevers, chills, malaise, nausea or vomiting. Patient denies any nasal congestion, ear pain or sore throat. Patient states she has a history of migraines with and is not sure she is right now. Bedside test is negative. Patient has no neurological deficits. No major medical history. And is well appearing, smiling and interactive. I do not believe it to be clinically indicated at this time for any radiological imaging due to the clinical presentation, physical exam, duration of symptoms and lack of risk factors. IV placed and migraine cocktail administered, 1 L normal saline bolus, 25 mg Benadryl IV, 30 mg Toradol IV and 10 mg Compazine IV. After patient received medication she reports the symptoms have resolved and she feels tremendously better. Patient will be discharged home with instructions to check to the emergency department as needed, follow up with her primary care, and to use over -the-counter Tylenol or ibuprofen as needed for pain or headache. Patient is thankful for care. Diagnosis Primary Impression: Headache Qualified Codes: R51 - Headache Referrals: Primary Care Physician Patient Instructions: Acute Headache (ED), General Instructions Additional Instructions: Please return to emergency department if your symptoms return or worsen. Follow up with your primary care provider. May take [id number] Tylenol or ibuprofen as needed for pain or headache. Scripts No Active Prescriptions or Reported Meds Disposition: DISCHARGE HOME Condition: Stable Sheeba Cabrera Dec 29, 2016 07:45
== END 2016-12-29 08:50 | disposition home or self-care (01) ==
LOC: NEPD 07:07
DX: R51 Headache (principal)
CPT/HCPCS: 96361; 96374; 96375; 99284; J0780; J1200; J1885; J7030

== ENCOUNTER 2017-04-21 20:49 | Emergency (ER) | payer MEDICAID, OTHER ==
[~2017-04-21] VITALS: Ht 167.6 cm; Wt 116.0 kg
[2017-04-21 21:38] VITALS: BP 125/80; PULSE 70; RESP 18; TEMP 98.1; O2SAT 100
[2017-04-21 22:35] VITALS: BP 122/67; PULSE 74; RESP 18; TEMP 98.1; O2SAT 97
--- NOTE | 2017-04-21 23:23 | PD ---
HPI Chief Complaint: Headache Time Seen by Provider: 23:06 Travel History International Travel<30 days: No Contact w/Intl Traveler<30days: No Traveled to known affect area: No History of Present Illness HPI The patient is a 36-year-old female that complains of a gradual onset of a left parietal occipital headache for 1 day. She has a feeling that somebody is pulling at her hair on the left side. She states the headache is throbbing and similar to the headache that she had in December of last year. She denies any fevers, chills, cough, shortness of breath, chest pain, nausea, vomiting, diarrhea, blurred vision or lightheadedness. She denies any focal neurologic change, any focal weakness or sensory loss. She got good relief with her headache with IV Toradol, Compazine, Benadryl. She denies any photophobia/ phonophobia. She states there is no possibility of . PFSH Past Medical History Hx Anticoagulant Therapy: No Blood Disorders: No Cancer: No Cardiovascular Problems: No Chemotherapy: No Cerebrovascular Accident: No Diabetes: No Diminished Hearing: No Endocrine: No Gastrointestinal Disorders: No Genitourinary: No Immune Disorder: No Implanted Vascular Access Dvce: No Musculoskeletal: No Neurologic: No Psychiatric: No Reproductive: No Respiratory: No Migraines: Yes ?: Not LMP: 04/02/2017 : 4 Para: 3 Miscarriage: 0 : 0 Ectopic : Yes (2007) Tubal Ligation: Yes (X1) Past Surgical History Abdominal Surgery: No Cardiac Surgery: No Section: Yes (2008) Ear Surgery: No Endocrine Surgery: No Eye Surgery: No Genitourinary Surgery: Yes (C/SECTION) Gynecologic Surgery: Yes (C SECTION) Hysterectomy: No Neurologic Surgery: No Oral Surgery: No Thoracic Surgery: No Other Surgery: No Social History Alcohol Use: Yes (occasionally) Tobacco Use: No Substance Use: No Allergies-Medications (Allergen,Severity, Reaction): Coded Allergies: No Known Allergies (Verified Adverse Reaction, Unknown, 04/21/17) Reported Meds & Prescriptions Reported Meds & Active Scripts Active No Active Prescriptions or Reported Medications Review of Systems Except as stated in HPI: all other systems reviewed are Neg Physical Exam Narrative GENERAL: Well-nourished, well-developed patient in moderate apparent distress with her headache, her vital signs are normal. SKIN: Focused skin assessment warm/dry. HEAD: Normocephalic. EYES: No scleral icterus. No injection or drainage. Fundi appear sharp and venous pulsations are seen in the upright position. NECK: Supple, trachea midline. No JVD or lymphadenopathy. There is no meningismus and the patient flexes neck fully without any hesitation. CARDIOVASCULAR: Regular rate and rhythm without murmurs, gallops, or rubs. RESPIRATORY: Breath sounds equal bilaterally. No accessory muscle use. GASTROINTESTINAL: Abdomen soft, non-tender, nondistended. MUSCULOSKELETAL: No cyanosis, or edema. BACK: Nontender without obvious deformity. No CVA tenderness. Data Data Last Documented VS Vital Signs Date Time Temp Pulse Resp B/P (MAP) Pulse Ox O2 Delivery O2 Flow Rate FiO2 04/22/17 00:27 18 98 Room Air 04/21/17 22:35 98.1 74 Orders Orders Ecg Monitoring (04/21/17 23:24) Iv Access Insert/Monitor (04/21/17 23:24) Oximetry (04/21/17 23:24) Sodium Chloride 0.9% Flush (Ns Flush) (04/21/17 23:30) Ketorolac Inj (Toradol Inj) (04/21/17 23:30) Prochlorperazine Inj (Compazine Inj) (04/21/17 23:30) Diphenhydramine Inj (Benadryl Inj) (04/21/17 23:30) Sodium Chlor 0.9% 1000 Ml Inj (Ns 1000 M (04/21/17 23:24) MDM Medical Decision Making Medical Screen Exam Complete: Yes Emergency Medical Condition: Yes Medical Record Reviewed: Yes Differential Diagnosis Migraine headache, cluster headache, tension headache, tension/migraine combination headache Narrative Course It is now 005 3 in the morning and the patient feels much better and wants to go home. Impression: Recurrent headache Plan: The patient be given Fioricet and follow-up with her primary care physician. Diagnosis Primary Impression: Recurrent occipital headache Med/Other Pt SpecificInfo: Prescription(s) given Scripts Mlxqoazhsr-[id number] (Fioricet) 50-300-40 Mg Cap 1-2 CAP PO Q6H Y for HEADACHE, #30 CAP 0 Refills Prov: Fahad Staley MD 04/22/17 Disposition: 01 DISCHARGE HOME Condition: Stable Fahad Staley MD Apr 21, 2017 23:23
[2017-04-21] MEDS ORDERED: SODIUM CHLOR 0.9% 1000 ML INJ 1,000 ML IV ONE (23:24)
[2017-04-21] MEDS ORDERED: diphenhydrAMINE HCL 50 MG/ML VIAL IVP ONE (23:30)
[2017-04-21] MEDS ORDERED: SODIUM CHLORIDE 0.9% FLUSH 10 ML FLUSH IVF PRN (23:30)
[2017-04-21] MEDS ORDERED: KETOROLAC TROMETHAMINE 30 MG/ML (IVP) VIAL IVP ONE (23:30)
[2017-04-21] MEDS ORDERED: PROCHLORPERAZINE INJ 10 MG/2 ML VIAL IVP ONE (23:30)
[2017-04-22 00:27] VITALS: RESP 18; O2SAT 98
[2017-04-22] MEDS ORDERED: BUTA1CAP PO (00:55)
[2017-04-22 01:16] VITALS: RESP 18
[2017-04-22 01:32] VITALS: BP 105/67
== END 2017-04-22 01:33 | disposition home or self-care (01) ==
LOC: PHED 20:49
DX: R51 Headache (principal)
CPT/HCPCS: 96361; 96374; 96375; 99284; J0780; J1200; J1885; J7030